=== PATIENT | male | born 1975 | race Caucasian/White ===

== ENCOUNTER 2018-06-09 07:22 | Emergency (ER) | payer SELFPAY ==
--- NOTE | 2018-06-09 08:41 | ER Document Report ---
HPI - HPI Time Seen by Provider: 06/09/18 08:41 Pain Level: 5 Notes: 42-year-old male presents the ED with complaints of right-sided lower back pain that started probably 3 days ago, felt a pop with a when he coughed. Denies any trauma, pain is 7/10, throbbing. Has not tried any [id number] medications, worse with time, nothing makes better, states he feels better when he is lying flat or standing. Reports he does have intermittent back pain throughout the course the last couple years, is a contractor and works on houses. Denies fevers, chills, chest pain,palpitations, shortness of breath, dyspnea, nausea, vomiting, diarrhea, abdominal pain, hematuria,blurred vision, double vision, loss of vision, speech changes, LH, dizziness, syncope, headaches, wheezing, neck pain, weakness, bowel or bladder dysfunction, saddle anesthesia, numbness or tingling in bilateral upper or lower extremities equally, muscle paralysis, weakness in bilateral upper or lower extremities equally or rash. Past Medical History - General Information source: Patient, Relative - Social History Smoking Status: Current Every Day Smoker Drug Abuse: Marijuana Family History: Reviewed & Not Pertinent Patient has suicidal ideation: No Patient has homicidal ideation: No Renal/ Medical History: Denies: Hx Peritoneal Dialysis Vertical Provider Document - CONSTITUTIONAL Agree With Documented VS: Yes Notes: PHYSICAL EXAMINATION: GENERAL: Well-appearing, well-nourished and in no acute distress. HEAD: Atraumatic, normocephalic. EYES: Pupils equal round and reactive to light, extraocular movements intact, sclera anicteric, conjunctiva are normal. ENT: Nares patent, oropharynx clear without exudates. Moist mucous membranes. NECK: Normal range of motion, supple without lymphadenopathy LUNGS: Breath sounds clear to auscultation bilaterally and equal. No wheezes rales or rhonchi. HEART: Regular rate and rhythm without murmurs ABDOMEN: Soft, nontender, nondistended abdomen. No guarding, no rebound. No masses appreciated. Musculoskeletal: Normal range of motion, no pitting or edema. No cyanosis. NEUROLOGICAL: Cranial nerves grossly intact. Normal speech, normal gait. Normal sensory, motor exams.Pain with flexion and extension at 40 degrees, positive straight leg test on right. Normal hip rotation. DTR +2 in BLE equally. Strength 5 out of 5 both distally and proximally to bilateral lower extremities normal motor and sensory function in BLE equally. Distal pulses + 2 BLE equally. Noted paraspinal tenderness near L2 and L3. No spinal tenderness. No CVA tenderness bilaterally. Femoral pulses + 2 bilaterally and equally. No abrasions, scars, lacerations, ecchymosis of any recent trauma. normal gait. PSYCH: Normal mood, normal affect. SKIN: Warm, Dry, normal turgor, no rashes or lesions noted. - INFECTION CONTROL TRAVEL OUTSIDE OF THE [place] IN LAST 30 DAYS: No Course - Re-evaluation Re-evalutation: 06/09/18 12:40 3 male afebrile vitals stable and in mild distress with right lower lumbar pain on palpation with paraspinal tenderness on right. Examination shows right paraspinal tenderness, straight leg positive on the right, pain with flexion extension, normal rotation of hip, strength 5 out of 5 in bilateral lower extremities equally, full motor and sensory function bilateral lower extremities equally. Lumbar x-ray does show DJD, no acute fracture dislocation, patient did find some relief with Toradol, discussed with patient that as needed follow-up with marketing project specialist and primary care provider, he may need further imaging, no focal neurological deficit on examination of patient. Discussed with patient that we will prescribe him muscle relaxers and [place] when in severe pain, do not drive, drink or operate heavy machinery while taking medication, patient will be given 6 [place] to go home with, patient stated he will be following up with marketing project specialist in the next 24 to 48 hours. Urinalysis did show leukoesterase we will culture, this was a dirty christianity but we will still culture. After performing a Medical Screening Examination, I estimate there is LOW risk for EXPANDING OR RUPTURED ABDOMINAL AORTIC ANEURYSM, CAUDA EQUINA SYNDROME, EPIDURAL MASS ABSCESS OR LESION(S), OSTEOMYELITIS,PERSONAL HISTORY OF CANCER, IMMUNOSUPPERSSSION, HISTORY OF IV DRUG USE, FRACTURE, CORD COMPERSSION, CANCER, RETROPERITONEAL BLEED, SPINAL EPIDURAL HEMATOMA, or HERNIATED DISK CAUSING SEVERE SPINAL STENOSIS, thus I consider the discharge disposition reasonable. I have reevaluated this patient multiple times and no significant life threatening changes are noted. The patient and I have discussed the diagnosis and risks, and we agree with discharging home and close follow-up. We also discussed returning to the Emergency Department immediately if new or worsening symptoms occur with the understanding that symptoms and presentations can change. We have discussed the symptoms which are most concerning (e.g., saddle anesthesia, urinary or bowel incontinence or retention, changing or worsening pain) that necessitate immediate return. - Vital Signs Vital signs: Temp Pulse Resp BP Pulse Ox 97.5 F 87 22 H 127/93 H 99 06/09/18 07:31 06/09/18 07:29 06/09/18 07:31 06/09/18 07:29 06/09/18 07:31 Discharge - Discharge Clinical Impression: Right sided sciatica Back pain Qualifiers: Back pain location: low back pain Chronicity: acute Back pain laterality: right Sciatica presence: with sciatica Sciatica laterality: sciatica of right side Qualified Code(s): M54.41 - Lumbago with sciatica, right side Condition: Stable Disposition: HOME, SELF-CARE Instructions: Ice Packs ([facility]), Low Back Pain ([facility]), Muscle Strain ([facility]), Oral Narcotic Medication ([facility]), Pain Medication Injection ([facility]), Warm Packs ([facility]) Additional Instructions: LOW BACK PAIN: Three out of every four people will have an episode of disabling back pain during their lifetime. Most commonly the pain is due to straining of the muscles and ligaments in the low back. Usual treatment includes: (1) Rest on a firm surface. Avoid lying on your stomach. (2) Ice pack the painful area. After a few days, gentle heat may be used intermittently to relax the area, or ice packs can be continued. (3) Medication may be needed -- muscle relaxers and antiinflammatory medicines are commonly used. (4) As the back improves, exercises are prescribed to strengthen the back and abdominal muscles. Your doctor will advise you on the proper care for your back at each stage in your recovery. You may be better in a few days -- or healing may take several weeks. If new symptoms of a "herniated disc" (radiation of pain, numbness, or tingling down the back of the leg or weakness in the leg) occur, you should be re-examined. Further testing may be necessary. PAIN MEDICATION INJECTION: You have received an injection of a pain medication. You should experience significant pain relief within 45 minutes. If this injection was a narcotic -- it will impair your judgement, slow your reaction time and make you sleepy (as well as relieve your pain). Narcotics also can cause nausea. You should not drive, work with machinery, or perform any task requiring mental alertness until all effects of the medication are gone -- six to eight hours. Do not take any alcohol, or sedatives, and do not take any other medication without checking with your physician. ORAL NARCOTIC MEDICATION: You have been given a prescription for pain control. This medication is a narcotic. It's best taken with food, as nausea can result if taken on an empty stomach. Don't operate machinery or drive within six hours of taking this medication. Do not combine this medicine with alcohol, or with any medication which can cause sedation (such as cold tablets or sleeping pills) unless you get permission from the physician. Narcotics tend to cause constipation. If possible, drink plenty of fluids and eat a diet high in fiber and fruits. Please be aware that prescription narcotics also have the potential for abuse. People become addicted to these medications because of the general sense of wellbeing that they induce. This feeling along with a significant reduction in tension, anxiety, and aggression provides a stimulating seductive quality to these drugs. Once your pain is under control, we encourage you to discard your unused narcotics. MUSCLE RELAXERS: Muscle relaxing medications are usually prescribed for acute muscle spasm or injury to the neck and back. They are often combined with antiinflammatory pain medication for increased relief. You may stop the muscle relaxer when the pain and stiffness have improved. Start the medication again if spasms recur. Muscle relaxers may cause drowsiness, especially with the first dose. Do not operate machinery or drive while under the effects of the medication. Most muscle relaxers last up to 24 hours. Do not combine the medication with alcohol. ICE PACKS: Apply ice packs frequently against the painful area. Many different schedules are recommended, such as "20 minutes on, 20 minutes off" or "one hour ice, two hours rest." If you need to work, you may need to go longer between i ce treatments. You should plan to have the area ice packed AT LEAST one fourth of the time. The ice should be applied over the wrap, tape, or splint, or over a layer of cloth -- not directly against the skin. Some ice bags have a built-in cloth and can be put directly on the skin. WARM PACKS: After approximately two days, apply gentle heat (such as a heating pad or hot water bottle) for about 20 to 30 minutes about every two hours -- at least four times daily. Warmth and elevation will help you make a more rapid recovery, and will ease the pain considerably. Do not use HOT heat, and never apply heat for longer than 30 minutes. The continuous heat can invisibly damage skin and muscles -- even when no burn is seen on the surface. Damaged muscles can make you MORE sore. FOLLOW-UP CARE: If you have been referred to a physician for follow-up care, call the physicians office for an appointment as you were instructed or within the next two days. If you experience worsening or a significant change in your symptoms, notify the physician immediately or return to the Emergency Department at any time for re-evaluation. Return immediately for any new or worsening symptoms. Follow up with primary care provider, call tomorrow to make followup appointment. Prescriptions: RX: Meloxicam [Mobic] 7.5 mg PO DAILY #7 tablet Methocarbamol [Robaxin 500 mg Tablet] 500 mg PO QID PRN #30 tablet PRN Reason: Forms: Return to Work Referrals: ROSSANA DIALLO MD [ACTIVE STAFF] - Follow up in 3-5 days KEILY HOOK MD [ACTIVE STAFF] - Follow up in 3-5 days
[2018-06-09] MEDS ORDERED: KETOROLAC TROMETHAMINE 60 MG/2 ML SDV IM ONE (09:16)
--- NOTE | 2018-06-09 10:14 | RADIOLOGY REPORT (SQ) ---
EXAM DESCRIPTION: L SPINE WHOLE COMPLETED DATE/TIME: 06/09/2018 10:05 am REASON FOR STUDY: lower back pain x 3 days, R>L COMPARISON: None. NUMBER OF VIEWS: Five views including obliques. TECHNIQUE: AP, lateral, oblique, and sacral radiographic images acquired of the lumbar spine. LIMITATIONS: None. FINDINGS: MINERALIZATION: Normal. SEGMENTATION: Normal. No transitional anatomy. ALIGNMENT: Normal. VERTEBRAE: Maintained height. No fracture or worrisome bone lesion. DISCS: Disc space narrowing at L3-4 and L4-5. POSTERIOR ELEMENTS: Mild hypertrophic facet changes L4-5. HARDWARE: None in the spine. PARASPINAL SOFT TISSUES: Normal. PELVIS: Intact as visualized. No fractures or worrisome bone lesions. SI joints intact. OTHER: No other significant finding. IMPRESSION: Degenerative disc disease. Facet arthropathy. TECHNICAL DOCUMENTATION: JOB ID: [id number] [employer]- All Rights Reserved Reading location - IP/workstation name: [email or web address]
[2018-06-09 10:43] LABS: AMORPHOUS SEDIMENT,URINE TRACE /HPF; APPEARANCE,URINE TURBID; BILIRUBIN,URINE NEGATIVE (NEGATIVE); COLOR,URINE YELLOW; GLUCOSE, URINE NEGATIVE (NEGATIVE); KETONES,URINE NEGATIVE (NEGATIVE); LEUKOCYTE ESTERASE,URINE TRACE (NEGATIVE); NITRITE,URINE NEGATIVE (NEGATIVE); PROTEIN,URINE NEGATIVE (NEGATIVE); URINE SPECIFIC GRAVITY 1.021; UROBILINOGEN,URINE NEGATIVE mg/dL (<2.0)
[2018-06-09 11:13] VITALS: BP 137/98
== END 2018-06-09 11:15 | disposition home or self-care (01) ==
LOC: ER 07:22
DX: M54.41 Lumbago with sciatica, right side (principal); F17.200 Nicotine dependence, unspecified, uncomplicated
CPT/HCPCS: 99283; 96372; 81001; 72110; J1885